=== PATIENT | male | born 1975 | race Hispanic/Latino ===

== ENCOUNTER 2018-04-08 17:44 | Emergency (ER) | payer OTHER ==
[~2018-04-08] VITALS: Ht 170.2 cm; Wt 84.8 kg
[2018-04-08 18:54] VITALS: BP 122/70
== END 2018-04-08 18:55 | disposition home or self-care (01) ==
LOC: FSED 17:44
DX: L03.116 Cellulitis of left lower limb (principal); L03.115 Cellulitis of right lower limb; I10 Essential (primary) hypertension
CPT/HCPCS: 99283